=== PATIENT | male | born 1945 | race Caucasian/White ===

== ENCOUNTER 2018-11-07 09:41 | Inpatient (IN) | payer BC, OTHER ==
[2018-11-06 17:25] VITALS: BMI 23.3
[2018-11-07] MEDS ORDERED: oxyCODONE HCL 5 MG TABLET PO PRN ×2 (12:00→14:18)
[2018-11-07] MEDS ORDERED: ONDANSETRON 4 MG/2 ML VIAL IVPUSH PRN (12:00)
[2018-11-07] MEDS ORDERED: LACTATED RINGERS SOLUTION 1,000 ML IV SCH (12:00)
[2018-11-07] MEDS ORDERED: DEXAMETHASONE SOD PHOSPHATE 4 MG/1 ML VIAL ONE (12:15)
[2018-11-07] MEDS ORDERED: fentaNYL CITRATE 250 MCG/5 ML VIAL ONE (12:15)
[2018-11-07] MEDS ORDERED: PROPOFOL 20 ML ONE ×2 (12:15)
[2018-11-07] MEDS ORDERED: ceFAZolin SODIUM 1 GM VIAL IVPB ONE (12:22)
[2018-11-07] MEDS ORDERED: ceFAZolin SODIUM 1 GM VIAL ONE ×2 (12:38→18:16)
--- NOTE | 2018-11-07 14:22 | OP ---
Operative Note - Note: Operative Date: 11/07/18 Pre-Operative Diagnosis: BPH, Prostatic Urethral calcification Operation: Cysto TUVP Findings: Large bph, clacification prostatic calcification Post-Operative Diagnosis: Same as Pre-op Surgeon: Lulu Galeana Anesthesia: General Specimens Removed: Prostate and calcifications Estimated Blood Loss (mls): 40 Drains & Tubes with Location: 24 F Causey Operative Report Dictated: Yes
[2018-11-07] MEDS: DEXTROSE 5%-0.45% SALINE 1,000 ML IV SCH (17:44)
[2018-11-07] MEDS ORDERED: CEFAZOLIN 1 GM/D5W 1 GM/50 ML BAG IVPB SCH (18:00)
[2018-11-07] MEDS ORDERED: DEXTROSE 5%-WATER - 50 ML IVPB ONE (18:16)
[2018-11-07] MEDS: CEFAZOLIN 1 GM in DEXTROSE 5%-WATER - 50 ML IVPB SCH (18:18)
[2018-11-08] MEDS: CEFAZOLIN 1 GM in DEXTROSE 5%-WATER - 50 ML IVPB SCH ×2 (03:24→10:14)
[2018-11-08 05:59] VITALS: TEMP 98.7
[2018-11-08 08:18] VITALS: BP 141/65; PULSE 61
--- NOTE | 2018-11-08 09:41 | OP ---
DATE OF OPERATION: 11/07/2018 SURGEON: Lulu Galeana MD ANESTHESIA: General. PREOPERATIVE DIAGNOSIS: Hematuria, prostatic hypertrophy, and prostatic urethral calcification POSTOPERATIVE DIAGNOSIS: Hematuria, prostatic hypertrophy and prostatic urethral calcification. PROCEDURE: Cystoscopy, resection of the prostatic urethra, and vaporization of the prostate. FINDINGS: Urethra normal. Bladder neck constricted with serial calcifications of the prostatic urethra and enlargement of the prostate gland. Ureteral orifices well away from the bladder neck after the bladder was found to be normal. DESCRIPTION OF PROCEDURE: Patient placed in lithotomy position, under anesthesia, was prepped and draped in the usual manner. Using 26-David resectoscope, cystoscopy performed and findings are as noted above. Using the resectoscope, resection of the prostatic urethra was carried out. Then the rest of the prostate was resected. Using the button, the entire prostatic urethra was vaporized and a good channel was noted at the end. All the resected tissues were removed using a . A 24-Ch[place] catheter was left indwelling. Patient tolerated the procedure well and left the operating room under satisfactory condition. Jolanta ALVARADO/[id number]
[2018-11-08] MEDS: DEXTROSE 5%-0.45% SALINE 1,000 ML IV SCH (10:13)
--- NOTE | 2018-11-08 15:38 | PN ---
Progress Note (short form) - Note Progress Note: For discharge today with limon and leg bag. Office on Monday for limon removal.
--- NOTE | 2018-11-09 14:27 | PATH ---
Surgical Pathology Report Patient Name: SCOOBY KAMINSKI Med. Rec. #: [id number] /Age/Gender: 1945 (Age: 73) / M Account: [id number] Location: [address] [place] [address] Taken: 11/07/2018 Received: 11/08/2018 Reported: 11/09/2018 Physicians: Lulu Galeana M.D. Specimen(s) Received PROSTATE CHIPS Clinical History BPH, hypertrophy of prostate Final Diagnosis PROSTATE, TUR: BENIGN PROSTATIC HYPERPLASIA, PREDOMINANTLY STROMAL TYPE. Comment: Also see [id number]. Electronically Signed Manoj Scott M.D. Gross Description Received in formalin labeled "prostate chips," is a 16 g, 10.5 x 7.0 x 0.6 cm are of cruz, firm to rubbery portions of tissue, consistent with prostate chips. A ict sales representative portion is submitted in 10 cassettes. /11/08/2018 saudi/11/08/2018
== END 2018-11-08 18:30 | disposition home or self-care (01) | DRG 714 ==
LOC: JASU-SURG 09:41 → JASUSAT 09:41 → J6S 17:42 → JASUSAT 17:43
PROVIDERS: ADMIT Urology; ATTEND Urology
PROC: 0V507ZZ Destruction of Prostate, Via Natural or Artificial Opening (ICD-10-PCS; principal; 2018-11-07 13:30)
DX: N40.0 Benign prostatic hyperplasia without lower urinary tract symptoms (principal); R31.9 Hematuria, unspecified
CPT/HCPCS: 88305-TC; 94760